=== PATIENT | female | born 2005 | race Caucasian/White ===

== ENCOUNTER 2025-07-08 12:10 | Outpatient (CLI) | payer BC ==
[2025-07-08] MEDS ORDERED: Bacteriostatic Normal Saline 30 ML VIAL ONE (13:45)
[2025-07-08] MEDS ORDERED: Sincalide 5 MCG VIAL ONE (13:45)
== END 2025-07-08 12:11 | disposition home or self-care (01) ==
LOC: NM 12:10
PROVIDERS: ATTEND Surgery
DX: R11.0 Nausea (principal)
CPT/HCPCS: 78227; A9537; J2805